=== PATIENT | female | born 1955 | race Hispanic/Latino ===

== ENCOUNTER 2024-06-03 11:00 | Outpatient (RCR) | payer MEDICARE | END 2024-06-06 | LOC: PT 11:00 | PROVIDERS: ATTEND Physician Assistant | DX: S82.035D Nondisplaced transverse fracture of left patella, subsequent encounter for closed fracture with routine healing (principal) ==

== ENCOUNTER 2024-06-13 16:00 | Outpatient (RCR) | payer MEDICARE | END 2024-07-07 | LOC: PT 16:00 | PROVIDERS: ATTEND Physician Assistant | DX: S82.035D Nondisplaced transverse fracture of left patella, subsequent encounter for closed fracture with routine healing (principal) ==